=== PATIENT | male | born 1950 | race Caucasian/White ===

== ENCOUNTER 2020-12-22 23:55 | Observation (INO) ==
--- OUTSIDE RECORDS SUMMARY | 2020-12-22 23:58 | External Medical Summary | Continuity of Care Document ---
:1950 Author Name Linda Rae Address Unavailable Unavailable , Care Team Providers Name Role Phone Margarette DO Unavailable [email or web address], [email or web address] Unavailable Unavailable Problems Active medical history not documented Allergies and Adverse Reactions Allergy history not documented Medications Medications not documented Procedures Procedures not documented Immunizations Immunizations not documented Plan of Treatment Planned Observations Planned Goals not documented Results No Known Results Results not documented
--- OUTSIDE RECORDS SUMMARY | 2020-12-22 23:58 | External Medical Summary | Continuity of Care Document ---
:1950 Author Name Linda Rae Address Unavailable Unavailable , Care Team Providers Name Role Phone Margarette DO Unavailable [email or web address] [email or web address], UNKNOWN Unavailable Unavailable Problems Active medical history not documented Allergies and Adverse Reactions Allergy history not documented Medications Medications not documented Procedures Procedures not documented Immunizations Immunizations not documented Plan of Treatment Planned Observations Planned Goals not documented Results No Known Results Results not documented
[2020-12-23] MEDS ORDERED: cefTRIAXone SODIUM 2,000 MG/70 ML BAG IV STA (00:12)
--- NOTE | 2020-12-23 00:18 | Emergency Department Note ---
Impression & Plan Acute urinary retention, Leukocytosis, RACHANA (acute kidney injury), Failure of outpatient treatment, Acute UTI, Hypertension ED Provider Note NAME: HANNAH PETIT AGE: 70 SEX: M : 1950 ARRIVES VIA: Walk-In INFORMANT: [Patient] ED PROVIDER(S): [Nitin Brink MD] CHIEF COMPLAINT: Unable to void HISTORY OF PRESENT ILLNESS: The patient is a 70-year-old male who states that last week, he began having some trouble with urination. He was going less and going more frequently. There was some burning to urinate. He saw his doctors office 2 days ago and was placed on Bactrim for a UTI. He then received a shot of antibiotic yesterday and then today. The antibiotics were given in his buttock IM. The patient states that tonight, he developed a rash on both lower legs. The rash does not itch. He states that he is now having even more difficulty voiding. He only goes an ounce or so at a time and feels his bladder is distended. He does have moderate pain. There has been no vomiting, no fever. No cough or cold or congestion. He has noticed some mild shortness of breath. The patient states that he was constipated last month, that resolved. He has not had prior issues with his prostate, he has not had a prior UTI. REVIEW OF SYSTEMS: See HPI for pertinent positives and negatives. A total of ten systems were reviewed and were otherwise negative. PMHx/PSHx: See Below SOCIAL HISTORY: See Below. PHYSICAL EXAM: GENERAL: Patient is in mild distress from pain HEENT: No acute trauma, normocephalic atraumatic, mucous membranes moist, no nasal congestion, no scleral icterus. NECK: No stridor, no adenopathy, no meningismus, trachea is midline. LUNGS: Clear to auscultation bilaterally, no wheeze, no rhonchi, breath sounds equal. HEART: Without murmurs gallops or rubs, regular rate and rhythm. ABDOMEN: Soft, somewhat distended, tender over the bladder, bowel sounds positive, no hernias, no peritonitis. EXTREMITIES: No cyanosis, mild bilateral pedal edema, full range of motion of all the joints without pain or difficulty, no signs for acute trauma. NEUROLOGIC: Oriented x 3, no acute motor or sensory deficits, no focal weakness. SKIN: The patient has a nonblanching patchy venous colored flat rash on both lower extremities from the knees to the ankles. There is no warmth. DIFFERENTIAL DIAGNOSIS: Sepsis, bacteremia, failed outpatient management, urinary retention, prostatitis, UTI, urinary obstruction, renal failure, electrolyte imbalance, medication reaction, allergic reaction. EMERGENCY DEPARTMENT COURSE/PROCEDURES: MEDICAL DECISION MAKING: There is a significant leukocytosis at 22,000, this is consistent with infection. There is a normal hemoglobin and platelet count. Sed rate was elevated at 58, consistent with ongoing infection/inflammation. Creatinine was elevated at 1.66, this consistent with some acute kidney injury. No significant electrolyte abnormality in need of correction. No coagulopathy. Lactic acid level was not elevated making severe sepsis less likely. No concerning liver enzyme elevation. Urinalysis showed some blood, bacteria count within the urine was negative. Bladder scan showed over 700 cc of urine. Abdominal and pelvis CT shows stranding around the ureters more so on the left. Findings were cons istent of infectious or inflammatory pyelitis. No hydronephrosis. Normal appendix. Patient had a Gusman catheter placed, he had over 1200 cc of urine drain. Patient was given IV saline, 500 cc, he received IV ceftriaxone for antibiotic coverage. He was given IV Tylenol for pain. He received IV hydralazine for his elevated blood pressure. The patient is failing outpatient treatment for his UTI. He has urinary retention. I am concerned he actually may have a pyelonephritis or prostatitis. He has a high white blood cell count and now has a lower extremity rash. The etiology for the rash is unclear, the rash may be related to his infection or possibly, the rash could be a side effect of the Bactrim. I spoke to the patient about his findings, I did speak with case management. The on-call hospitalist has been consulted. The patient is currently resting comfortably. He appears stable. Past Med/Surg History Medical History Hypertension Social History Smoking Status: Never smoker Preferred Language: Chinese Feels Safe at Home: Yes Allergies Allergies Allergy/AdvReac Type Severity Reaction Status Date / Time No Known Allergies Allergy Mild Unverified 12/23/20 00:12 Home Meds Home Medications Medication Instructions Recorded Confirmed allopurinol 300 mg PO DAILY 12/23/20 12/23/20 amlodipine 10 mg PO DAILY 12/23/20 12/23/20 aspirin [Aspirin Low Dose] 81 mg PO DAILY 12/23/20 12/23/20 atorvastatin 20 mg PO QPM 12/23/20 12/23/20 sulfamethoxazole-trimethoprim 1 tab PO BID 12/23/20 12/23/20 tamsulosin 0.4 mg PO QPM 12/23/20 12/23/20 Results & Data (ED) Vital Signs Vital Signs - 24 hr 12/22/20 23:58 Temperature 36.7 C Temperature Source Temporal Artery Scan Pulse Rate 98 H Respiratory Rate 22 Respiratory Depth Normal Blood Pressure 214/93 H Blood Pressure Mean 133 Pulse Oximetry 97 Oxygen Delivery Method Room Air Sepsis Recent Fever Within 48 Hours No Sepsis New/Unexplained Change in Mental Status N/A Sepsis Action Taken by Nursing No Action Required Home Medications Current Medication List: was personally reviewed by me Laboratory Data Attestation: I reviewed the patient's lab results. Result diagrams: 12/23/20 00:20 12/23/20 00:20 Lab Results 12/23/20 12/23/20 12/23/20 Range/Units 00:20 00:20 00:20 WBC 22.77 H (4.8-10.8) K/uL RBC 4.72 (4.7-6.1) M/uL Hgb 14.7 (14.0-18.0) g/dL Hct 41.5 L (42-52) % MCV 87.9 (80-100) fL MCH 31.1 (25-34) pg MCHC 35.4 (32-36) g/dL RDW Std Deviation 43.0 (36.4-46.3) fL RDW Coeff of Riddhi 13.4 (11.5-14.5) % Plt Count 244 (130-400) K/uL MPV 9.7 (7.4-10.4) fL Immature Gran % (Auto) 2.5 % Neut % (Auto) 85.5 % Lymph % (Auto) 6.2 % Hood % (Auto) 5.0 % Eos % (Auto) 0.5 % Baso % (Auto) 0.3 % Neut # (Auto) 19.48 H (1.4-6.5) K/uL Lymph # (Auto) 1.41 (1.2-3.4) K/uL Hood # (Auto) 1.13 H (0.11-0.59) K/uL Eos # (Auto) 0.12 (0-0.5) K/uL Baso # (Auto) 0.07 (0-0.2) K/uL Immature Gran # (Auto) 0.56 H (0.00-0.02) K/uL ESR 58 H (0-14) mm/hr PT (9.0-12.0) Seconds INR (0.9-1.1) APTT (21.0-31.0) Seconds PTT Ratio Sodium 136 (136-145) mmol/L Potassium 4.2 (3.5-5.1) mmol/L Chloride 105 (98-107) mmol/L Carbon Dioxide 21 (21-32) mmol/L Anion Gap 10.0 (3-11) BUN 22 H (7-18) mg/dl Creatinine 1.66 H (0.6-1.4) mg/dl Est Cr Clr Drug Dosing 44.9 ml/min Est GFR ( Amer) 47.3 Est GFR (Non-Af Amer) 40.9 BUN/Creatinine Ratio 13.0 (10-20) Glucose 116 H (70-99) mg/dl Lactate (0.4-2.0) mmol/L Calcium 9.0 (8.5-10.1) mg/dl Magnesium 2.4 (1.8-2.4) mg/dl Total Bilirubin 0.5 (0.2-1) mg/dl AST 21 (15-37) U/L ALT 39 (12-78) U/L Alkaline Phosphatase 101 (45-117) U/L Total Protein 8.3 H (6.4-8.2) gm/dl Albumin 3.9 (3.4-5.0) gm/dl Globulin 4.4 H (2.5-4.0) gm/dl Albumin/Globulin Ratio 0.9 (0.9-2) Urine Color Urine Appearance (Clear) Urine pH (4.5-7.5) Ur Specific [place] (1.000-1.030) Urine Protein (Negative) Urine Glucose (UA) (Negative) Urine Ketones (Negative) Urine Blood (Negative) Urine Nitrite (Negative) Urine Bilirubin (Negative) Urine Urobilinogen (Negative) Ur Leukocyte Esterase (Negative) Urine WBC (Auto) (0-5) /hpf Urine RBC (Auto) (0-4) /hpf U Hyaline Cast (Auto) (0-5) /lpf U Epithel Cells (Auto) (0-5) /lpf Urine Bacteria (Auto) (Negative) 12/23/20 12/23/20 12/23/20 Range/Units 00:20 00:20 00:45 WBC (4.8-10.8) K/uL RBC (4.7-6.1) M/uL Hgb (14.0-18.0) g/dL Hct (42-52) % MCV (80-100) fL MCH (25-34) pg MCHC (32-36) g/dL RDW Std Deviation (36.4-46.3) fL RDW Coeff of Riddhi (11.5-14.5) % Plt Count (130-400) K/uL MPV (7.4-10.4) fL Immature Gran % (Auto) % Neut % (Auto) % Lymph % (Auto) % Hood % (Auto) % Eos % (Auto) % Baso % (Auto) % Neut # (Auto) (1.4-6.5) K/uL Lymph # (Auto) (1.2-3.4) K/uL Hood # (Auto) (0.11-0.59) K/uL Eos # (Auto) (0-0.5) K/uL Baso # (Auto) (0-0.2) K/uL Immature Gran # (Auto) (0.00-0.02) K/uL ESR (0-14) mm/hr PT 10.7 (9.0-12.0) Seconds INR 1.1 (0.9-1.1) APTT 23.2 (21.0-31.0) Seconds PTT Ratio 0.9 Sodium (136-145) mmol/L Potassium (3.5-5.1) mmol/L Chloride (98-107) mmol/L Carbon Dioxide (21-32) mmol/L Anion Gap (3-11) BUN (7-18) mg/dl Creatinine (0.6-1.4) mg/dl Est Cr Clr Drug Dosing ml/min Est GFR ( Amer) Est GFR (Non-Af Amer) BUN/Creatinine Ratio (10-20) Glucose (70-99) mg/dl Lactate 1.1 (0.4-2.0) mmol/L Calcium (8.5-10.1) mg/dl Magnesium (1.8-2.4) mg/dl Total Bilirubin (0.2-1) mg/dl AST (15-37) U/L ALT (12-78) U/L Alkaline Phosphatase (45-117) U/L Total Protein (6.4-8.2) gm/dl Albumin (3.4-5.0) gm/dl Globulin (2.5-4.0) gm/dl Albumin/Globulin Ratio (0.9-2) Urine Color Yellow Urine Appearance Clear (Clear) Urine pH 5.5 (4.5-7.5) Ur Specific [place] 1.014 (1.000-1.030) Urine Protein 1+ H (Negative) Urine Glucose (UA) Negative (Negative) Urine Ketones Negative (Negative) Urine Blood 2+ H (Negative) Urine Nitrite Negative (Negative) Urine Bilirubin Negative (Negative) Urine Urobilinogen Negative (Negative) Ur Leukocyte Esterase Negative (Negative) Urine WBC (Auto) 1-5 (0-5) /hpf Urine RBC (Auto) 10-30 H (0-4) /hpf U Hyaline Cast (Auto) 0 (0-5) /lpf U Epithel Cells (Auto) 0-5 (0-5) /lpf Urine Bacteria (Auto) Negative (Negative) Administered Medications Sodium Chloride (Nss 1000ml) 500 mls @ 999 mls/hr IV .Q31M ONE Stop: 12/23/20 02:14 Last Admin: 12/23/20 02:05 Dose: 999 mls/hr Documented by: [id number] Discontinued Medications Acetaminophen (Acetaminophen 1000 Mg/100 Ml Iv) 1,000 mg IV NOW STA Stop: 12/23/20 01:45 Last Admin: 12/23/20 02:05 Dose: 1,000 mg Documented by: [id number] Hydralazine HCl (Hydralazine Hcl 20 Mg/Ml Vial) 10 mg IV NOW STA Stop: 12/23/20 01:56 Last Admin: 12/23/20 02:07 Dose: 10 mg Documented by: [id number] Ceftriaxone Sodium (Rocephin) 2,000 mg in 70 mls @ 140 mls/hr IV NOW STA Stop: 12/23/20 00:41 Last Infusion: 12/23/20 01:40 Dose: 0 mls/hr Documented by: [id number] Admin: 12/23/20 01:08 Dose: 140 mls/hr Documented by: [id number] Imaging Data Radiologist's Impression: Abdominal and pelvis CT: There was inflammation around the ureters consistent with pyelitis. No hydronephrosis. There was a stone within the right kidney. The appendix was normal. Discharge Plan Visit Data Chief Complaint: Unable to Void Stated Complaint: UNABLE TO VOID ED Provider: Nitin Brink Discharge Problem: Acute urinary retention, Leukocytosis, RACHANA (acute kidney injury), Failure of outpatient treatment, Acute UTI, Hypertension Patient Disposition: Admitted As Inpatient Condition: Fair Forms Stand Alone Forms: [facility] [employer] Prescriptions Prescriptions: No Action atorvastatin 20 mg tablet 20 mg PO QPM RF: 0 sulfamethoxazole-trimethoprim 800-160 mg tablet 1 tab PO BID RF: 0 tamsulosin 0.4 mg capsule 0.4 mg PO QPM RF: 0 amlodipine 10 mg tablet 10 mg PO DAILY RF: 0 allopurinol 300 mg tablet 300 mg PO DAILY RF: 0 aspirin [Aspirin Low Dose] 81 mg Tablet,Delayed Release (Dr/Ec) 81 mg PO DAILY RF: 0 Referrals Referrals: Regi Nino CRNP [Primary Care Provider] - Discharge Problem: Leukocytosis Qualifiers: Leukocytosis type: unspecified Qualified Code(s): D72.829 - Elevated white blood cell count, unspecified Hypertension Qualifiers: Hypertension type: unspecified Qualified Code(s): I10 - Essential (primary) hypertension
[2020-12-23 00:36] LABS: Basophils # (auto) 0.07 K/uL (0-0.2); Basophils % (auto) 0.3 %; Eosinophils # (auto) 0.12 K/uL (0-0.5); Eosinophils % (auto) 0.5 %; Hematocrit (blood only) 41.5 % (42-52); Hemoglobin 14.7 g/dL (14.0-18.0); Immature Granulocytes # (auto) 0.56 K/uL (0.00-0.02); Immature Granulocytes % (auto) 2.5 %; Lymphocytes # (auto) 1.41 K/uL (1.2-3.4); Lymphocytes % (auto) 6.2 %; Mean Corpuscular Hemoglobin 31.1 pg (25-34); Mean Corpuscular Hgb Conc 35.4 g/dL (32-36); Mean Corpuscular Volume 87.9 fL (80-100); Mean Platelet Volume 9.7 fL (7.4-10.4); Monocytes # (auto) 1.13 K/uL (0.11-0.59); Neutrophils # (auto) 19.48 K/uL (1.4-6.5); Neutrophils % (auto) 85.5 %; Platelet Count 244 K/uL (130-400); RDW Coefficient of Variation 13.4 % (11.5-14.5); Red Blood Count 4.72 M/uL (4.7-6.1); White Blood Count 22.77 K/uL (4.8-10.8)
[2020-12-23 00:39] LABS: Appearance Urine Clear (Clear); Bacteria Urine Automated Negative (Negative); Bilirubin Urine Negative (Negative); Blood Urine 2+ (Negative); Cast Urine Automated 0 /lpf (0-5); Color Urine Yellow; Epithelial Cell Urine Auto 0-5 /lpf (0-5); Glucose Urine UA Negative (Negative); Ketones Urine Negative (Negative); Leukocyte Esterase Urine Negative (Negative); Nitrite Urine Negative (Negative); Protein Urine 1+ (Negative); Specific Gravity Urine 1.014 (1.000-1.030); Urobilinogen Urine Negative (Negative); pH Urine 5.5 (4.5-7.5)
[2020-12-23 01:03] LABS: Albumin Level 3.9 gm/dl (3.4-5.0); Creatinine Clr Calc Pharmacy 44.9 ml/min; Est GFR (African American) 47.3; Est GFR (Non-African American) 40.9; Magnesium 2.4 mg/dl (1.8-2.4); Potassium 4.2 mmol/L (3.5-5.1)
[2020-12-23 01:05] LABS: Albumin Globulin Ratio 0.9 (0.9-2); Bilirubin,Total 0.5 mg/dl (0.2-1); Globulin 4.4 gm/dl (2.5-4.0); Total Protein 8.3 gm/dl (6.4-8.2)
[2020-12-23] MEDS ORDERED: ACETAMINOPHEN 1000 MG/100 ML IV IV STA (01:44)
[2020-12-23] MEDS ORDERED: SODIUM CHLORIDE 0.9% 1000ML 500 ML IV ONE (01:44)
[2020-12-23] MEDS ORDERED: hydrALAZINE HCL 20 MG/ML VIAL IV STA (01:55)
[2020-12-23 02:03] LABS: INR 1.1 (0.9-1.1); Partial Thromboplastin Ratio 0.9; Partial Thromboplastin Time 23.2 Seconds (21.0-31.0); Prothrombin Time 10.7 Seconds (9.0-12.0)
[2020-12-23] MEDS ORDERED: ONDANSETRON INJ 2 MG/ML 2 ML VIAL IV PRN (04:15)
--- NOTE | 2020-12-23 04:51 | History & Physical Report ---
Date of Service December 23, 2020 Assessment & Plan (1) Acute urinary retention: Acute urinary retention/acute UTI/pyelitis/BPH with urinary obstruction/LUTS- Question compression from a GI process Stop Bactrim Follow urine culture and sensitivity Ceftriaxone 2 g IV daily Continue Gusman catheter placed in ED Increase tamsulosin from 0.4 to 0.8 mg p.o. every evening NSS 100 mils per hour Present on Admission?: Yes (2) Acute UTI: See above Present on Admission?: Yes (3) BPH w urinary obs/LUTS: See above Present on Admission?: Yes (4) Gaseous abdominal distention: Not commented upon in the [facility] report of CT scan, but is very clinic ally obvious. Patient has significant abdominal distention, affecting his ability to take a deep breath. Placed on simethicone chews 80 mg p.o. every 6 hours scheduled Keep n.p.o. until [facility] radiology over reads the study. Present on Admission?: Yes (5) Hypertension: Hold amlodipine, in the event it is contributing to his chronic constipation. For now, hydralazine 10 mg IV every 4 hours as needed systolic blood pressure greater than 160 Present on Admission?: Yes (6) RACHANA (acute kidney injury): Creatinine 1.66 upon admission with unknown baseline. Likely an element of postobstructive uropathy NSS 100 mils per hour and repeat laboratories in a.m. Consult urology Present on Admission?: Yes (7) Hyperlipidemia: Continue atorvastatin Present on Admission?: Yes (8) Gout: Continue allopurinol Present on Admission?: Yes (9) Allergic drug rash due to sulfonamide: New petechial rash noted on bilateral lower extremities. Was on Bactrim for 2 days, with developing a rash today. Bactrim is being discontinued Follow clinical examination closely. No signs of TEN/SJS Present on Admission?: Yes Admission and Anticipated Discharge Date Admission Date: December 23, 2020 History of Present Illness Chief Complaint: The patient presents to the emergency department with complaint of difficulty urinating, abdominal distention, increased belching over the past few days, and the development of a rash on both lower extremities today. Primary Care Provider: CEM Tinsley The patient is a 70-year-old male with a past medical history including gout, hypertension, hyperlipidemia and BPH. He was seen at the physician's office 2 days Ago, and was placed on Bactrim for urinary tract infection. He reports he received an IM shot of antibiotics yesterday and then today. He is also noticed increased abdominal distention and belching during the last several days, and was treated for constipation over a week ago. In addition, he notes the development of a nonpainful rash over his anterior tibial areas bilaterally that began today. Allergies Allergy/AdvReac Type Severity Reaction Status Date / Time No Known Allergies Allergy Mild Unverified 12/23/20 00:12 Home Medications Medication Instructions Recorded Confirmed Type allopurinol 300 mg PO DAILY 12/23/20 12/23/20 History amlodipine 10 mg PO DAILY 12/23/20 12/23/20 History aspirin [Aspirin Low Dose] 81 mg PO DAILY 12/23/20 12/23/20 History atorvastatin 20 mg PO QPM 12/23/20 12/23/20 History sulfamethoxazole-trimethoprim 1 tab PO BID 12/23/20 12/23/20 History tamsulosin 0.4 mg PO QPM 12/23/20 12/23/20 History Past Med/Surg History Medical History Hypertension Social History Smoking Status: Never smoker Second Hand Exposure: No; Hx Alcohol Use: Yes Alcohol type: beer Hx Substance Use: No Preferred Language: Georgian Communication Ability: Effective 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 Beliefs That Will Affect Care: None Current Living Situation: Spouse Other Information That Helps Us Care for You: No Feels Safe at Home: Yes Safety Concerns: Feels Safe At This Time Assistive Devices: Glasses Review of Systems Review of Systems: The patient denies chest pain, palpitations, shortness of breath, dyspnea on exertion, cough, lower extremity swelling, sore throat, fevers, chills, sweats, weight change, fatigue, nausea, vomiting, blood in urine or stool, lightheadedness, dizziness, headache, memory loss, loss of consciousness, abnormal bruising or bleeding, imbalance, focal or generalized weakness, numbness or tingling in arms or legs, generalized arthralgias or myalgias, back or neck pain, or night sweats. The review of systems is otherwise negative other than for that already noted above, and at least 10 systems have been reviewed. Physical Exam Physical Exam: The patient is awake, alert and oriented 3, well developed and well nourished, normocephalic and atraumatic, lying in bed and in no acute distress. HEENT--PERRL, EOMI, mucous membranes and oropharynx dry. Neck--supple. No JVD. No bruits. Thyroid normal, trachea midline, no adenopathy. Heart--normal S1 and S2. No murmurs, rubs or gallops. Lungs--clear bilaterally, no respiratory distress, no accessory muscle use. Abdomen--high-pitched bowel sounds. Moderately distended and tympanitic. Nontender. Extremities--no cyanosis or clubbing. No edema. Dermatologic--petechial rash of her bilateral lower extremities Neurologic--cranial nerves II through XII grossly intact. Rheumatologic--normal range of motion. Psychiatric--normal affect. Results & Data Results & Data ([facility]) Vital Signs (Past 12 Hours) Vital Signs Temp Pulse Pulse Resp BP BP Pulse Ox 12/23/20 04:17 77 149/74 H 12/23/20 03:41 75 20 157/85 H 94 12/23/20 02:31 83 18 161/83 H 97 12/23/20 02:08 78 20 153/92 H 95 12/22/20 23:58 98.1 F 98 H 22 214/93 H 97 Laboratory Results Laboratory Results WBC 22.77 K/uL (4.8-10.8) H 12/23/20 00:20 RBC 4.72 M/uL (4.7-6.1) 12/23/20 00:20 Hgb 14.7 g/dL (14.0-18.0) 12/23/20 00:20 Hct 41.5 % (42-52) L 12/23/20 00:20 MCV 87.9 fL (80-100) 12/23/20 00:20 MCH 31.1 pg (25-34) 12/23/20 00:20 MCHC 35.4 g/dL (32-36) 12/23/20 00:20 RDW Std Deviation 43.0 fL (36.4-46.3) 12/23/20 00:20 RDW Coeff of Riddhi 13.4 % (11.5-14.5) 12/23/20 00:20 Plt Count 244 K/uL (130-400) 12/23/20 00:20 MPV 9.7 fL (7.4-10.4) 12/23/20 00:20 Immature Gran % (Auto) 2.5 % 12/23/20 00:20 Neut % (Auto) 85.5 % 12/23/20 00:20 Lymph % (Auto) 6.2 % 12/23/20 00:20 [place] % (Auto) 5.0 % 12/23/20 00:20 Eos % (Auto) 0.5 % 12/23/20 00:20 Baso % (Auto) 0.3 % 12/23/20 00:20 Neut # (Auto) 19.48 K/uL (1.4-6.5) H 12/23/20 00:20 Lymph # (Auto) 1.41 K/uL (1.2-3.4) 12/23/20 00:20 [place] # (Auto) 1.13 K/uL (0.11-0.59) H 12/23/20 00:20 Eos # (Auto) 0.12 K/uL (0-0.5) 12/23/20 00:20 Baso # (Auto) 0.07 K/uL (0-0.2) 12/23/20 00:20 Immature Gran # (Auto) 0.56 K/uL (0.00-0.02) H 12/23/20 00:20 ESR 58 mm/hr (0-14) H 12/23/20 00:20 PT 10.7 Seconds (9.0-12.0) 12/23/20 00:20 INR 1.1 (0.9-1.1) 12/23/20 00:20 APTT 23.2 Seconds (21.0-31.0) 12/23/20 00:20 PTT Ratio 0.9 12/23/20 00:20 Sodium 136 mmol/L (136-145) 12/23/20 00:20 Potassium 4.2 mmol/L (3.5-5.1) 12/23/20 00:20 Chloride 105 mmol/L (98-107) 12/23/20 00:20 Carbon Dioxide 21 mmol/L (21-32) 12/23/20 00:20 Anion Gap 10.0 (3-11) 12/23/20 00:20 BUN 22 mg/dl (7-18) H 12/23/20 00:20 Creatinine 1.66 mg/dl (0.6-1.4) H 12/23/20 00:20 Est Cr Clr Drug Dosing 44.9 ml/min 12/23/20 00:20 Est GFR ( Amer) 47.3 12/23/20 00:20 Est GFR (Non-Af Amer) 40.9 12/23/20 00:20 BUN/Creatinine Ratio 13.0 (10-20) 12/23/20 00:20 Glucose 116 mg/dl (70-99) H 12/23/20 00:20 Lactate 1.1 mmol/L (0.4-2.0) 12/23/20 00:45 Calcium 9.0 mg/dl (8.5-10.1) 12/23/20 00:20 Magnesium 2.4 mg/dl (1.8-2.4) 12/23/20 00:20 Total Bilirubin 0.5 mg/dl (0.2-1) 12/23/20 00:20 AST 21 U/L (15-37) 12/23/20 00:20 ALT 39 U/L (12-78) 12/23/20 00:20 Alkaline Phosphatase 101 U/L (45-117) 12/23/20 00:20 Total Protein 8.3 gm/dl (6.4-8.2) H 12/23/20 00:20 Albumin 3.9 gm/dl (3.4-5.0) 12/23/20 00:20 Globulin 4.4 gm/dl (2.5-4.0) H 12/23/20 00:20 Albumin/Globulin Ratio 0.9 (0.9-2) 12/23/20 00:20 Urine Color Yellow 12/23/20 00:20 Urine Appearance Clear (Clear) 12/23/20 00:20 Urine pH 5.5 (4.5-7.5) 12/23/20 00:20 Ur Specific [place] 1.014 (1.000-1.030) 12/23/20 00:20 Urine Protein 1+ (Negative) H 12/23/20 00:20 Urine Glucose (UA) Negative (Negative) 12/23/20 00:20 Urine Ketones Negative (Negative) 12/23/20 00:20 Urine Blood 2+ (Negative) H 12/23/20 00:20 Urine Nitrite Negative (Negative) 12/23/20 00:20 Urine Bilirubin Negative (Negative) 12/23/20 00:20 Urine Urobilinogen Negative (Negative) 12/23/20 00:20 Ur Leukocyte Esterase Negative (Negative) 12/23/20 00:20 Urine WBC (Auto) 1-5 /hpf (0-5) 12/23/20 00:20 Urine RBC (Auto) 10-30 /hpf (0-4) H 12/23/20 00:20 U Hyaline Cast (Auto) 0 /lpf (0-5) 12/23/20 00:20 U Epithel Cells (Auto) 0-5 /lpf (0-5) 12/23/20 00:20 Urine Bacteria (Auto) Negative (Negative) 12/23/20 00:20 COVID-19 Eval Order Covid19 IDNow Pending sale to [facility] 12/23/20 02:10 SARS-CoV-2, RNA, NAAT NEGATIVE (NEGATIVE) 12/23/20 02:10 Diagnostic Findings [facility] Patient: HANNAH PETIT (Male) : 48 Status: ER Date: 12/23/20 01:47 Room #: History: unable to void, bilateral flank pain, no history of stones, appendix present Slices: [phone] Priors: Tech: Lorena Sidhu @ [phone] Exams: CT ABDOMEN & PELVIS Without Contrast Contrast: Accession Numbers: [id number] Preliminary Findings Only See Final Report For Complete Findings CT ABDOMEN & PELVIS Without Contrast: Periureteral fatty stranding and a small amount of layering adjacent retr operitoneal fluid involving both ureters, more so on the left side. There is also mild diffuse urothelial thickening in the ureters. Its appearance is suggestive of infectious or inflammatory pyelitis. 4 mm calcification in the right kidney which may represent calcification within a simple cyst or diverticulum versus a nonobstructing kidney stone. Otherwise no radiopaque kidney stone. No hydronephrosis. Multilevel lumbar spondylosis with slight L4-L5 spondylolisthesis. Normal appendix. Radiologist: Berto Frederick MD Study ready at 01:49 and initial results transmitted at 02:08 *This report constitutes a preliminary interpretation only. Non-acute findings felt to be unrelated to the clinical presentation may not be discussed in this report. The study will be interpreted and a final report will be generated by the local Radiologist the following shift. To reach the hospital radiology department call [phone]. If a discrepancy is found between the preliminary and final interpretations of this study, please notify us via our Client Portal at [email or web address] under QA [email or web address].You can also fax this report with a description of the discrepancy, or include the final report, to our daytime fax number [phone].If faxing, please indicate the severity of discrepancy using one of the following categories: [ ] 1 - Agree/Informational [ ] 2 - Unlikely to Affect Management [ ] 3 - Possible Eventual Change of Management [ ] 4 - Probable Immediate Change of Management For all other patient related information, please fax us at [phone]. [id number] Code Status & VTE Plan Code Status Full code VTE Prophylaxis Plan VTE Prophylaxis will be ordered: Yes PG Care Time/CCT Total # of Minutes Spent Total Time Spent with Patient: Total time spent is greater than 50% in coordination of care (as documented) at patient's floor/unit and/or counseling patient: Coding Level of Care Code 10291 Initial Inpt Care Lvl 3 Diagnoses Acute urinary retention R33.8 Acute UTI N39.0 BPH w urinary obs/LUTS N40.1; N13.8 Gaseous abdominal distention R14.0 Hypertension I10 Hypertension type: unspecified RACHANA (acute kidney injury) N17.9 Hyperlipidemia E78.5 Gout M10.9 Allergic drug rash due to sulfonamide L27.0; T37.0X5A (1) Hypertension Hypertension type: unspecified Qualified Code(s): I10 - Essential (primary) hypertension
[2020-12-23] MEDS: SODIUM CHLORIDE 0.9% 1000ML 1,000 ML IV SCH ×3 (04:55→23:53)
[2020-12-23] MEDS: SIMETHICONE 80 MG CHEW PO SCH ×4 (06:36→23:54)
[2020-12-23] MEDS: allopurinoL 300 MG TAB PO SCH (08:02)
[2020-12-23] MEDS: HEPARIN SOD 5,000 UNIT/0.5 ML VIAL SQ SCH ×2 (08:02→20:56)
--- NOTE | 2020-12-23 08:27 | CT Scan Report ---
ABDOMEN AND PELVIS CT WITHOUT CONTRAST CT DOSE: 921.17 mGy.cm HISTORY: Bilateral flank pain. poss urinary obstruction TECHNIQUE: Multiaxial CT images of the abdomen and pelvis were performed without contrast. A dose lo wering technique was utilized adhering to the principles of ALARA. COMPARISON STUDY: None. FINDINGS: A few bibasilar linear densities consistent with subsegmental atelectasis. No pneumoperiton eum. No pneumatosis. No suspicious lytic or blastic osseous lesions. Small fat-containing bilateral i nguinal hernias. Mild hepatic steatosis. There are 2 7 mm hypodense lesions within the left hepatic l obe. These are too small to characterize but favor cysts. The unenhanced spleen, adrenal glands, panc reas, and gallbladder are unremarkable. There is a 5 mm stone within the lower pole the right kidney. No left renal calculi. There are 2 adjacent hypodense lesions within the lower pole the right kidney measuring 4.3 and 4.1 cm. These are incompletely characters on this noncontrast study but favor cyst s. There is a 1.3 cm hypodense lesion within the left kidney. No hydronephrosis. There is diffuse uro thelial thickening within the renal pelvis sees and ureters with bilateral periureteral fat stranding and a small amount of adjacent retroperitoneal fluid involving both ureters most pronounced on the l eft. No ureteral stones. Therefore, these findings favor an infectious or inflammatory pyelitis. Mode rate bladder wall thickening which is decompressed by a Gusman catheter. The prostate gland is mildly enlarged. There are suboptimal evaluation for bowel pathology due to the lack of intravenous and oral contrast. However, there is no definite bowel wall thickening or obstruction. Normal appendix. IMPRESSION: 1. Diffuse bilateral urothelial thickening suggestive of an infectious or inflammatory pyelitis. Ther e is also moderate bladder wall thickening with adjacent fat stranding suggesting a cystitis. Recomme nd correlation with urinalysis. 2. Right-sided nephrolithiasis. No ureteral stones. No hydronephrosis. 3. The bladder is decompressed by a Gusman catheter. The prostate gland is enlarged. 4. No definite bowel wall thickening or obstruction. 5. Additional findings as described above. ACT 112: Negative or not required by law. Electronically signed by: Sam Araujo M.D. 12/23/2020 8:26 AM
[2020-12-23] MEDS: ACETAMINOPHEN 325 MG TAB PO PRN ×3 (09:29→23:51)
--- NOTE | 2020-12-23 13:43 | Urology Consultation ---
Date of Consultation December 23, 2020 Assessment & Plan (1) BPH w urinary obs/LUTS: (2) RACHANA (acute kidney injury): (3) Acute urinary retention: Patient was admitted due to significant abdominal pain with severe distention of abdomen due to bowel distention with moderate distention of colon and decompression of left and sigmoid colon. Patient was also found to have significant retention with inability to void and significant bladder distention which was treated by catheterization. Patient's imaging was all reviewed interpreted by myself. Imaging show signs of irritation and inflammation along ureter bilaterally with significant thickening of bladder. Discussed possibility of upper tract issues related to long-term retention issues. Patient has moderate LUTS at baseline but did not have any episodes of retention prior to this. Patient does have family history of a brother with prostate cancer. Otherwise no considerable issues. We will need to maintain catheter for likely 7 to 10 days with plans for decompression of system. Will likely need cystoscopy at some point. We will plan to have patient set up in office to further work-up and assess as an outpatient. May be able to set up as a office cystoscopy at some point to further assess for obstruction issues and other problems. Will likely need to have PSA assessment however with recent catheterization and significant inflammation and irritation of bladder we will hold off until follow-up. Patient's complicated medical and surgical history is reviewed and summarized above. We will plan to monitor and we will set patient up for outpatient follow-up History of Present Illness Attending Physician: Marquez Osborne History of Present Illness Consult for urinary issues with incomplete emptying and possible retention. Patient has mild to moderate discomfort in pelvis and groin going to back and side in waves. Is dealing with acute illness and significant distention with t rouble with bowel movements and belching. Has had considerable discomfort from this. Has been deconditioned from this. Has decreased mobility significantly with acute issues. Patient has not had complete return to normal bowel function. Has had some minor urinary issues in the past. Denies bleeding. No severe nausea or vomiting. Currently no fevers. Discussed with patient multifactorial nature of urinary issues, retention, and incomplete bladder emptying. Discussed concerns and issues. Discussed decreased mobility and trouble voiding. Discussed issues related to deconditioning and weakened state. Discussed possibility that patient had more moderate to severe issues and with the acute illness and deconditioning these issues became more prevalent and obvious. Discussed bowel function and possible issues related to decrease in function and its relation to other pelvic organs and systems. Discussed different medications, will use during hospitalization and their effect on ability to empty. Allergies Allergy/AdvReac Type Severity Reaction Status Date / Time No Known Allergies Allergy Mild Unverified 12/23/20 00:12 Home Medications Medication Instructions Recorded Confirmed Type allopurinol 300 mg PO DAILY 12/23/20 12/23/20 History amlodipine 10 mg PO DAILY 12/23/20 12/23/20 History aspirin [Aspirin Low Dose] 81 mg PO DAILY 12/23/20 12/23/20 History atorvastatin 20 mg PO QPM 12/23/20 12/23/20 History sulfamethoxazole-trimethoprim 1 tab PO BID 12/23/20 12/23/20 History tamsulosin 0.4 mg PO QPM 12/23/20 12/23/20 History Patient History Medical History BPH w urinary obs/LUTS Gout Hyperlipidemia Hypertension Social History Smoking Status: Never smoker Second Hand Exposure: No; Hx Alcohol Use: Yes Alcohol type: beer Hx Substance Use: No Preferred Language: Syriac Communication Ability: Effective 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 Patient is well nourished and well kept. HEENT: Normocephalic Atraumatic. Inspection normal. Cranial Nerves 2-12 Grossly intact. Nares are clear. Neck is supple. Normal inspection of face. Normal inspection of neck. Neurologic: No deficits on inspection. Baseline for motor function and sensory. Psychologic: Normal affect. Respiratory: Nonlabored. No use of accessory muscles. No tachypnea or dyspnea. Cardiovascular: No tachycardia Skin: [place] and Dry. No rashes or visible lesions. Extremities: Moving without issues. No motor deficits on inspection Lymphatics: No edema Abdomen: Soft Non-distended. No acites. No rebound or guarding. : Gusman in place draining clear yellow urine Results & Data ([facility]) Vital Signs (Past 12 Hours) Vital Signs Temp Pulse Resp BP Pulse Ox 12/23/20 11:02 36.5 C 68 18 154/81 H 94 12/23/20 07:41 36.6 C 74 18 137/74 94 12/23/20 04:17 77 149/74 H 12/23/20 04:10 78 96 12/23/20 03:41 75 20 157/85 H 94 12/23/20 02:31 83 18 161/83 H 97 12/23/20 02:08 78 20 153/92 H 95 PG Care Time/CCT Total # of Minutes Spent Total Time Spent with Patient: Total time spent is greater than 50% in coordination of care (as documented) at patient's floor/unit and/or counseling patient: Coding Level of Care Code 04225 Inpt Consult Level 5 Diagnoses BPH w urinary obs/LUTS N40.1; N13.8 RACHANA (acute kidney injury) N17.9 Acute urinary retention R33.8
--- NOTE | 2020-12-23 16:47 | XRay Report ---
KUB HISTORY: abdominal distention COMPARISON: Abdomen and pelvis CT 12/23/2020. FINDINGS: Multiple borderline dilated gas-filled loops of large and small bowel seen throughout the a bdomen. There is also mild gaseous distention of the stomach. Findings favor an ileus. Gas is seen wi thin the rectum. No renal calculi. No ureteral calculi. Calcifications in the deep pelvis likely rep resent phleboliths. No pneumoperitoneum or pneumatosis. IMPRESSION: Multiple borderline dilated gas-filled loops of large and small bowel seen throughout the abdomen. Th is favors an ileus. ACT 112: Negative or not required by law. Electronically signed by: Sam Araujo M.D. 12/23/2020 4:46 PM
[2020-12-23] MEDS: ATORVASTATIN 20 MG TAB PO SCH (20:56)
[2020-12-23] MEDS: TAMSULOSIN HCL 0.4 MG CAP PO SCH (20:56)
[2020-12-23] MEDS: cefTRIAXone SODIUM 2,000 MG in DEXTROSE 5% 50 ML IV SCH (23:52)
[2020-12-24] MEDS: SIMETHICONE 80 MG CHEW PO SCH ×4 (05:30→23:50)
[2020-12-24 06:08] LABS: Basophils # (auto) 0.06 K/uL (0-0.2); Basophils % (auto) 0.5 %; Eosinophils # (auto) 0.31 K/uL (0-0.5); Eosinophils % (auto) 2.4 %; Hematocrit (blood only) 39.2 % (42-52); Hemoglobin 13.1 g/dL (14.0-18.0); Immature Granulocytes # (auto) 0.41 K/uL (0.00-0.02); Immature Granulocytes % (auto) 3.1 %; Lymphocytes % (auto) 18.4 %; Mean Corpuscular Hemoglobin 30.3 pg (25-34); Mean Corpuscular Hgb Conc 33.4 g/dL (32-36); Mean Corpuscular Volume 90.5 fL (80-100); Mean Platelet Volume 9.6 fL (7.4-10.4); Monocytes # (auto) 0.88 K/uL (0.11-0.59); Monocytes % (auto) 6.7 %; Neutrophils # (auto) 8.99 K/uL (1.4-6.5); Neutrophils % (auto) 68.9 %; Platelet Count 236 K/uL (130-400); RDW Coefficient of Variation 13.7 % (11.5-14.5); RDW Standard Deviation 45.7 fL (36.4-46.3); Red Blood Count 4.33 M/uL (4.7-6.1); White Blood Count 13.05 K/uL (4.8-10.8)
[2020-12-24 06:37] LABS: Albumin Level 2.9 gm/dl (3.4-5.0); BUN Creatinine Ratio 10.6 (10-20); Calcium 8.6 mg/dl (8.5-10.1); Creatinine Clr Calc Pharmacy 43.9 ml/min; Est GFR (Non-African American) 38.9; Potassium 4.6 mmol/L (3.5-5.1)
[2020-12-24 06:45] LABS: Albumin Globulin Ratio 0.8 (0.9-2); Bilirubin,Total 0.5 mg/dl (0.2-1); Globulin 3.6 gm/dl (2.5-4.0); Total Protein 6.5 gm/dl (6.4-8.2)
[2020-12-24] MEDS: HEPARIN SOD 5,000 UNIT/0.5 ML VIAL SQ SCH ×2 (08:36→20:15)
[2020-12-24] MEDS: allopurinoL 300 MG TAB PO SCH (08:36)
[2020-12-24] MEDS: SODIUM CHLORIDE 0.9% 1000ML 1,000 ML IV SCH ×2 (10:38→20:12)
[2020-12-24] MEDS: ACETAMINOPHEN 325 MG TAB PO PRN (17:27)
[2020-12-24] MEDS: hydrALAZINE HCL 20 MG/ML VIAL IV PRN (20:11)
[2020-12-24] MEDS: TAMSULOSIN HCL 0.4 MG CAP PO SCH (20:13)
--- NOTE | 2020-12-24 21:33 | Hospitalist Progress Note ---
Date of Service December 24, 2020 Assessment & Plan (1) Acute urinary retention: Acute urinary retention/acute UTI/pyelitis/BPH with urinary obstruction/LUTS- Question compression from a GI process Stop Bactrim Follow urine culture and sensitivity Ceftriaxone 2 g IV daily Continue Gusman catheter placed in ED Increase tamsulosin from 0.4 to 0.8 mg p.o. every evening NSS 100 mils per hour (2) Acute UTI: See above (3) BPH w urinary obs/LUTS: See above (4) Gaseous abdominal distention: Not commented upon in the [facility] report of CT scan, but is very clinically obvious. Patient has significant abdominal distention, affecting his ability to take a deep breath. Placed on simethicone chews 80 mg p.o. every 6 hours scheduled Placed on clear liquid diet. will monitor. (5) Hypertension: Hold amlodipine, in the event it is contributing to his chronic constipation. For now, hydralazine 10 mg IV every 4 hours as needed systolic blood pressure greater than 160 (6) RACHANA (acute kidney injury): Creatinine 1.66 upon admission with unknown baseline. Likely an element of postobstructive uropathy NSS 100 mils per hour and repeat laboratories in a.m. Consult urology: appreciate input. (7) Hyperlipidemia: Continue atorvastatin (8) Gout: Continue allopurinol (9) Allergic drug rash due to sulfonamide: New petechial rash noted on bilateral lower extremities. Was on Bactrim for 2 days, with developing a rash today. Bactrim is being discontinued Follow clinical examination closely. No signs of TEN/SJS Admission and Anticipated Discharge Date Admission Date: December 23, 2020 Subjective Patient reports having BM and passing gas. Review of Systems Review of Systems: All systems reviewed & are unremarkable except as noted in HPI & below The patient denies chest pain, palpitations, shortness of breath, dyspnea on exertion, cough, lower extremity swelling, sore throat, fevers, chills, sweats, weight change, fatigue, nausea, vomiting, blood in urine or stool, lightheadedness, dizziness, headache, memory loss, loss of consciousness, abnormal bruising or bleeding, imbalance, focal or generalized weakness, numbness or tingling in arms or legs, generalized arthralgias or myalgias, back or neck pain, or night sweats. The review of systems is otherwise negative other than for that already noted above, and at least 10 systems have been reviewed. Physical Exam Physical Exam: The patient is awake, alert and oriented 3, well developed and well nourished, normocephalic and atraumatic, lying in bed and in no acute distress. HEENT--PERRL, EOMI, mucous membranes and oropharynx dry. Neck--supple. No JVD. No bruits. Thyroid normal, trachea midline, no adenopathy. Heart--normal S1 and S2. No murmurs, rubs or gallops. Lungs--clear bilaterally, no respiratory distress, no accessory muscle use. Abdomen--normal bowel sounds. Moderately distended (but decreased) and tympanitic. Nontender. Extremities--no cyanosis or clubbing. No edema. Dermatologic--petechial rash of her bilateral lower extremities Neurologic--cranial nerves II through XII grossly intact. Rheumatologic--normal range of motion. Psychiatric--normal affect. Results & Data Results & Data ([facility]) Vital Signs (Past 12 Hours) Vital Signs Temp Pulse Resp BP BP Pulse Ox 12/24/20 20:08 71 203/94 H 12/24/20 15:24 73 156/83 H 12/24/20 14:40 36.5 C 79 18 166/81 H 93 PG Care Time/CCT Total # of Minutes Spent Total Time Spent with Patient: Total time spent is greater than 50% in coordination of care (as documented) at patient's floor/unit and/or counseling patient: Coding Level of Care Code 26162 Subseq Hosp Care Lvl 2 Diagnoses Acute urinary retention R33.8 Acute UTI N39.0 BPH w urinary obs/LUTS N40.1; N13.8 Gaseous abdominal distention R14.0 Hypertension I10 Hypertension type: unspecified RACHANA (acute kidney injury) N17.9 Hyperlipidemia E78.5 Gout M10.9 Allergic drug rash due to sulfonamide L27.0; T37.0X5A Time Spent (min) 25 (1) Hypertension Hypertension type: unspecified Qualified Code(s): I10 - Essential (primary) hypertension
[2020-12-24] MEDS: ATORVASTATIN 20 MG TAB PO SCH (23:49)
[2020-12-24] MEDS: cefTRIAXone SODIUM 2,000 MG in DEXTROSE 5% 50 ML IV SCH (23:50)
[2020-12-25] MEDS ORDERED: MoRPHine SULFATE 2 MG/ML CARP IV STA (00:08)
[2020-12-25 05:54] LABS: Basophils # (auto) 0.05 K/uL (0-0.2); Basophils % (auto) 0.4 %; Eosinophils # (auto) 0.26 K/uL (0-0.5); Hematocrit (blood only) 38.9 % (42-52); Hemoglobin 13.2 g/dL (14.0-18.0); Immature Granulocytes # (auto) 0.23 K/uL (0.00-0.02); Immature Granulocytes % (auto) 1.7 %; Lymphocytes # (auto) 2.03 K/uL (1.2-3.4); Lymphocytes % (auto) 15.3 %; Mean Corpuscular Hemoglobin 30.6 pg (25-34); Mean Corpuscular Hgb Conc 33.9 g/dL (32-36); Mean Platelet Volume 9.5 fL (7.4-10.4); Monocytes # (auto) 0.74 K/uL (0.11-0.59); Monocytes % (auto) 5.6 %; Neutrophils # (auto) 9.97 K/uL (1.4-6.5); Platelet Count 277 K/uL (130-400); RDW Coefficient of Variation 13.7 % (11.5-14.5); RDW Standard Deviation 45.3 fL (36.4-46.3); Red Blood Count 4.32 M/uL (4.7-6.1); White Blood Count 13.28 K/uL (4.8-10.8)
[2020-12-25] MEDS: SIMETHICONE 80 MG CHEW PO SCH ×2 (05:56→12:19)
[2020-12-25] MEDS: hydrALAZINE HCL 20 MG/ML VIAL IV PRN (06:02)
[2020-12-25] MEDS ORDERED: LORATADINE 10 MG TAB PO ONE (06:03)
[2020-12-25 06:19] LABS: Albumin Level 3.1 gm/dl (3.4-5.0); BUN Creatinine Ratio 9.1 (10-20); Calcium 8.9 mg/dl (8.5-10.1); Creatinine Clr Calc Pharmacy 46.9 ml/min; Est GFR (African American) 48.8; Est GFR (Non-African American) 42.1; Potassium 4.1 mmol/L (3.5-5.1)
[2020-12-25 06:22] LABS: Albumin Globulin Ratio 0.8 (0.9-2); Bilirubin,Total 0.6 mg/dl (0.2-1); Globulin 3.8 gm/dl (2.5-4.0); Total Protein 6.9 gm/dl (6.4-8.2)
[2020-12-25] MEDS: SODIUM CHLORIDE 0.9% 1000ML 1,000 ML IV SCH (06:25)
[2020-12-25] MEDS: HEPARIN SOD 5,000 UNIT/0.5 ML VIAL SQ SCH (08:31)
[2020-12-25] MEDS ORDERED: ASPIRIN 81 MG ECTAB PO SCH (09:00)
[2020-12-25] MEDS ORDERED: LIDOCAINE 5% 1 PATCH TD SCH (09:00)
[2020-12-25] MEDS: allopurinoL 300 MG TAB PO SCH (09:16)
--- NOTE | 2020-12-25 12:56 | XRay Report ---
KUB HISTORY: abdominal bloating COMPARISON: KUB 12/23 621. FINDINGS: Multiple borderline dilated gas-filled loops of large and small bowel are again seen throug hout the abdomen. There is also mild gaseous distention of the stomach. This is nonsignificant change . There is a punctate stone within the right kidney, unchanged. Calcifications in the deep pelvis re main stable and likely represent phleboliths. No pneumoperitoneum or pneumatosis. IMPRESSION: 1. No change in the borderline dilated gas-filled loops of large and small bowel as well as the stoma ch. Findings favor an ileus. 2. Stable right-sided nephrolithiasis. ACT 112: Negative or not required by law. Electronically signed by: Sam Araujo M.D. 12/25/2020 12:54 PM
--- NOTE | 2021-01-01 20:34 | Discharge Summary ---
Date of Service December 25, 2020 Admission HPI Per Admitting Provider The patient is a 70-year-old male with a past medical history including gout, hypertension, hyperlipidemia and BPH. He was seen at the physician's office 2 days Ago, and was placed on Bactrim for urinary tract infection. He reports he received an IM shot of antibiotics yesterday and then today. He is also noticed increased abdominal distention and belching during the last several days, and was treated for constipation over a week ago. In addition, he notes the development of a nonpainful rash over his anterior tibial areas bilaterally that began today. Principal Diagnosis acute urinary retention Discharge Exam The patient is awake, alert and oriented 3, well developed and well nourished, normocephalic and atraumatic, lying in bed and in no acute distress. HEENT--PERRL, EOMI, mucous membranes and oropharynx dry. Neck--supple. No JVD. No bruits. Thyroid normal, trachea midline, no adenopathy. Heart--normal S1 and S2. No murmurs, rubs or gallops. Lungs--clear bilaterally, no respiratory distress, no accessory muscle use. Abdomen--normal bowel sounds. Moderately distended (but decreased) and tymp anitic. Nontender. Extremities--no cyanosis or clubbing. No edema. Dermatologic--petechial rash of her bilateral lower extremities Neurologic--cranial nerves II through XII grossly intact. Rheumatologic--normal range of motion. Psychiatric--normal affect. Discharge Data Allergies Allergy/AdvReac Type Severity Reaction Status Date / Time No Known Allergies Allergy Mild Unverified 12/23/20 00:12 Consultations 12/23/20 01:56 ED Decision to Admit Stat 12/23/20 04:15 Consult Case Management - Discharge Planning Routine 12/23/20 04:43 Consult Urology Routine Ordered Studies 12/23/20 00:10 CT abd pelvis wo con Urgent Hospital Course (1) Acute urinary retention: Acute urinary retention/acute UTI/pyelitis/BPH with urinary obstruction/LUTS- Question compression from a GI process Stop Bactrim Follow urine culture and sensitivity Ceftriaxone 2 g IV daily Continue Talley catheter placed in ED Increase tamsulosin from 0.4 to 0.8 mg p.o. every evening will discharge on cefdinir and talley catheter (2) Acute UTI: See above (3) BPH w urinary obs/LUTS: See above (4) Gaseous abdominal distention: Not commented upon in the [facility] report of CT scan, but is very clinically obvious. Patient has significant abdominal distention, affecting his ability to take a deep breath. Placed on simethicone chews 80 mg p.o. every 6 hours scheduled advanced diet as tolerated. will discharge (5) Hypertension: Hold amlodipine, in the event it is contributing to his chronic constipation. For now, hydralazine 10 mg IV every 4 hours as needed systolic blood pressure greater than 160 (6) RACHANA (acute kidney injury): Creatinine 1.66 upon admission with unknown baseline. Likely an element of postobstructive uropathy NSS 100 mils per hour and repeat laboratories in a.m. Consult urology: appreciate input. (7) Hyperlipidemia: Continue atorvastatin (8) Gout: Continue allopurinol (9) Allergic drug rash due to sulfonamide: New petechial rash noted on bilateral lower extremities. Was on Bactrim for 2 days, with developing a rash today. Bactrim is being discontinued Follow clinical examination closely. No signs of TEN/SJS Total Time Total Time Spent Total Time Spent (In Minutes): 32 Total Time Includes: Examination of the Patient, Discharge Planning and Medication Reconciliation Discharge Plan Discharge Items Patient Disposition: Home - Self-Care Reason For Visit: URINARY RETENTION, CONSTIPATION, DRUG RASH Discharge Diagnosis: urinary retention/ constipation Condition on Discharge: Fair Activity: Resume your previous activity Non-emergency contact: Primary Care Provider Call non-emergency contact if: you have any medication questions Follow-up/Referrals: Shawn Marquez DO [Physician] - (PR UROLOGY WILL CALL PATIENT WITH APPT.) Regi Nino CRNP [Primary Care Provider] - 12/28/20 10:40 am Diet: Regular Addtl Attending Provider Instructions: Recommend followup with PCP in 1-2 weeks. Needs followup with Urology in about 7-10 days for removal of urinary catherter Pending Studies at Discharge: No Stand-Alone Forms: My [employer], Smoking Cessation Medications and DC Order Prescriptions: New lisinopril 2.5 mg tablet 2.5 mg PO PM Qty: 30 RF: 0 amlodipine 2.5 mg tablet 2.5 mg PO PM Qty: 30 RF: 0 lidocaine 5 % Adhesive Patch,Medicated 1 patch transdermal QAM Qty: 7 RF: 0 simethicone [Mi-Acid Gas Relief(simethicon)] 80 mg Tablet,Chewable 80 mg PO Q6H PRN (Reason: abdominal distention) Qty: 60 RF: 0 Continued atorvastatin 20 mg tablet 20 mg PO QPM RF: 0 tamsulosin 0.4 mg capsule 0.4 mg PO QPM RF: 0 allopurinol 300 mg tablet 300 mg PO DAILY RF: 0 aspirin [Aspirin Low Dose] 81 mg Tablet,Delayed Release (Dr/Ec) 81 mg PO DAILY RF: 0 Discontinued sulfamethoxazole-trimethoprim 800-160 mg tablet 1 tab PO BID RF: 0 amlodipine 10 mg tablet 10 mg PO DAILY RF: 0 Discharge Orders: Discharge Order (Routine); Ordered 12/25/20 Ordered By: Marquez Osborne Admission Data Admit Date/Time: 12/23/20 03:15 Attending Provider: Marquez Osborne Admit Provider: Kenan Olivares Primary Care Provider: Regi Nino Other Providers: Kenan Olivares ; Prateek Billings Other Interventions: Discharge Summary Assessment (RN) Last Done: 12/25/20 14:38 Coding Level of Care Code D/C Day Management >30 mins Diagnoses Acute urinary retention R33.8 Acute UTI N39.0 BPH w urinary obs/LUTS N40.1; N13.8 Gaseous abdominal distention R14.0 Hypertension I10 Hypertension type: unspecified RACHANA (acute kidney injury) N17.9 Hyperlipidemia E78.5 Gout M10.9 Allergic drug rash due to sulfonamide L27.0; T37.0X5A
== END 2020-12-25 15:36 | disposition home or self-care (01) ==
LOC: ED 23:55 → SUATTDRO 12-23 03:15 → INTOOBSV 12-23 03:15 → 3E 12-23 03:15